=== PATIENT | male | born 1995 | race Caucasian/White ===

== ENCOUNTER 2020-01-02 15:37 | Outpatient (CLI) | payer OTHER, SELFPAY ==
[2020-01-04 13:33] LABS: SARS-CoV-2 RNA PCR Positive
== END 2020-01-02 15:38 | disposition home or self-care (01) ==
PROVIDERS: PCP Family Medicine; Visit Provider Family Medicine
DX: U07.1 COVID-19 (principal); R43.2 Parageusia; R05 Cough
CPT/HCPCS: 87635; C9803; U0003